=== PATIENT | female | born 1955 | race Two or more races ===

== ENCOUNTER 2017-03-29 10:24 | Outpatient (CLI) | payer OTHER | END 2017-03-29 10:33 | disposition home or self-care (01) | LOC: SONOGRAMA 10:24 | DX: E04.2 Nontoxic multinodular goiter (principal) ==

== ENCOUNTER 2023-04-19 10:31 | Outpatient (CLI) | payer OTHER | END 2023-04-19 10:34 | disposition home or self-care (01) | LOC: SONOGRAMA 10:31 | PROVIDERS: ATTEND Pathology Anatomic Pathology | DX: D34 Benign neoplasm of thyroid gland (principal); E07.89 Other specified disorders of thyroid; E04.2 Nontoxic multinodular goiter; R22.1 Localized swelling, mass and lump, neck ==